=== PATIENT | male | born 1940 | race African-American/Black ===

== ENCOUNTER 2019-11-29 12:11 | Emergency (ER) | payer MEDICARE ==
[~2019-11-29] VITALS: Ht 165.1 cm; Wt 63.0 kg
[~2019-11-29 12:11] MED LIST: LACT20SO PO
--- NOTE | 2019-11-29 12:42 | PHYS DOC ---
Past Medical History Past Medical History: Dementia, Hypotension, Liver Disease, Other Additional Past Medical Histor: ASCITES, ENCEPHALOPATHY, PVD, THROMBOCYTOPENIA, VARICES Past Medical History Limited due to dementia Past Surgical History: Other Additional Past Surgical Histo: UNKNOWN Past Surgical History Limited due to dementia Smoking Status: Former Smoker Alcohol Use: Sober Drug Use: None Social History Limited due to dementia Adult General Chief Complaint Chief Complaint: OTHER COMPLAINTS HPI HPI Patient is a 79 year old male with a history of ascites, liver disease, enceph alopathy, PVD, thrombocytopenia who presents to the ED due to penile bleeding due to forceful removal of his higgins catheter this morning around 8 AM. HPI obtained via EMS. Patient is currently living in home hospice for unknown reasons- dementia and liver failure? Patient denies having any pain at this time. History of present illness is limited secondary to patient's dementia. Review of Systems Review of Systems Constitutional: Denies fever or chills Respiratory: Denies cough or shortness of breath Cardiovascular: Denies chest pain or palpitations GI: Denies abdominal pain, nausea, or vomiting : Reports dysuria; reports bleeding from penis Musculoskeletal: Denies back pain or joint pain Review of systems limited secondary to dementia. Allergies Allergies Allergies Coded Allergies Type Severity Reaction Last Updated Verified No Known Drug Allergies 11/09/19 No Physical Exam Physical Exam Constitutional: Well developed, well nourished, no acute distress, non-toxic appearance HENT: Normocephalic, atraumatic, oropharynx moist Eyes: No discharge, bilateral icterus Neck: Normal range of motion, no tenderness, supple Cardiovascular: Heart rate normal, regular rhythm Lungs & Thorax: Bilateral breath sounds clear to auscultation, no wheezing Abdomen: Soft, no tenderness, distended, dressing seen over the right side of upper abdomen c/d/i, small fluid wave noted Skin: Warm, dry, jaundice, no rash Extremities: No tenderness, ROM intact, no edema Neurologic: Alert and oriented X 1, normal motor function, normal sensory function, no focal deficits noted Psychologic: Affect flat, judgment poor : mild penile blood clots noted without significant active bleeding and with no laceration observed Current Patient Data Vital Signs Vital Signs Date Time Temp Pulse Resp B/P (MAP) Pulse Ox O2 Delivery O2 Flow Rate FiO2 11/29/19 13:22 84 16 103/65 (78) 99 11/29/19 12:11 97.5 Room Air 97.5 EKG EKG [] Radiology/Procedures Radiology/Procedures [] Course & Med Decision Making Course & Med Decision Making Patient is a 79 year old male with a history of ascites, liver disease, encephalopathy, PVD, thrombocytopenia who presents to the ED due to penile bleeding due to forceful removal of his higgins catheter this morning. Limited history was taken due to patient's dementia. He currently resides at home hospice for unknown reasons. Family was contacted Penile bleeding was well-controlled. Patient was stable for discharge and was instructed to return to the hospital if bleeding worsens. Family elected to not have higgins cath replaced at this time. Higgins cath replacement and UA therefore cancelled per family/DPOA's wishes. Patient stable for discharge home with outpatient follow-up with PCP/hospice. Dragon Disclaimer Dragon Disclaimer This electronic medical record was generated, in whole or in part, using a voice recognition dictation system. Departure Departure Impression: Primary Impression: Penile bleeding Additional Impressions: End stage liver disease Dislodged Higgins catheter Hospice care patient Disposition: 01 HOME, SELF-CARE (back to hospice care) Condition: STABLE Referrals: NO PCP (PCP) Additional Instructions: There was bleeding from penis secondary to trauma caused by accidental removal of higgins catheter. Bleeding is currently controlled. There may still be some residual bleeding from area. Watch for signs of inability to urinate. This may require reinsertion of a higgins catheter. RETURN for any worsening of condition or for other concerns. Otherwise please follow with family physician, urologist, or hospice career professional. Problem Qualifiers Additional Impressions: Dislodged Higgins catheter Encounter type: initial encounter Qualified Codes: T83.021A - Displacement of indwelling urethral catheter, initial encounter DOROTHY STYLES DO Nov 29, 2019 12:42
[2019-11-29 13:22] VITALS: BP 103/65
== END 2019-11-29 14:15 | disposition home or self-care (01) ==
LOC: ER 12:11
DX: T83.021A Displacement of indwelling urethral catheter, initial encounter (principal); K72.90 Hepatic failure, unspecified without coma; N48.89 Other specified disorders of penis; Z51.5 Encounter for palliative care; F03.90 Unspecified dementia, unspecified severity, without behavioral disturbance, psychotic disturbance, mood disturbance, and anxiety; Z87.891 Personal history of nicotine dependence; Y84.6 Urinary catheterization as the cause of abnormal reaction of the patient, or of later complication, without mention of misadventure at the time of the procedure; Y92.89 Other specified places as the place of occurrence of the external cause
CPT/HCPCS: 99284